=== PATIENT | male | born 1940 | race Caucasian/White ===

== ENCOUNTER 2024-05-25 20:04 | Emergency (ER) | payer OTHER, BC ==
[2024-05-25 20:37] LABS: BASOPHILS PERCENT AUTO 0.2 % (0.0-1.0); EOSINOPHILS PERCENT AUTO 1.5 % (1.0-3.0); HEMATOCRIT 37.4 % (40.0-54.0); HEMOGLOBIN 12.2 g/dL (14.0-18.0); LYMPHOCYTES PERCENT AUTO 20.1 % (20.5-50.1); MEAN CORPUSCULAR HEMOGLOBIN 29.4 pg (27.0-34.0); MEAN CORPUSCULAR HGB CONC 32.6 g/dL (33.0-35.0); MEAN CORPUSCULAR VOLUME 90.1 fL (80-100); MONOCYTES PERCENT AUTO 8.1 % (2-8); NEUTROPHILS PERCENT AUTO 70.1 % (42.2-75.2); PLATELET COUNT,PLT 229 10^3/uL (150-450); RED BLOOD CELL COUNT 4.15 10^6/uL (4.6-6.2); WHITE BLOOD CELL COUNT,WBC 8.7 10^3/uL (5.0-10.0)
[2024-05-25 20:53] LABS: BLOOD UREA NITROGEN,BUN 37 mg/dL (7-18); C-REACTIVE PROTEIN < 0.50 ng/dL (<=0.50); CALCIUM 8.9 mg/dL (8.5-10.1); CARBON DIOXIDE,CO2 30 mmol/L (21-32); CHLORIDE,CL 104 mmol/L (98-107); CREATININE 1.92 mg/dL (0.70-1.30); EST CRCL DRUG DOSING (CG) 28.55 mL/min; ESTIMATED GFR 34 mL/min (>=60); GLUCOSE RANDOM 126 mg/dL (70-99); MAGNESIUM 2.3 mg/dL (1.8-2.4); SODIUM,NA 141 mmol/L (136-145)
[2024-05-25] MEDS: Acetaminophen 500 MG Tab PO ONE (20:57)
[2024-05-25] MEDS: Ketorolac 30 MG/ML SDV IM ONE (20:57)
[2024-05-25] MEDS ORDERED: Sodium Chloride 0.9% 1,000 ML IV ONE (21:14)
[2024-05-25] MEDS ORDERED: Sodium Chloride 0.9% 10 ML Syringe FLUSH PRN (21:14)
[2024-05-25] MEDS: Sodium Chloride 0.9% 500 ML IV SCH (21:26)
== END 2024-05-25 22:36 | disposition home or self-care (01) ==
LOC: DL.ED 20:04
DX: E86.0 Dehydration (principal); W01.0XXA Fall on same level from slipping, tripping and stumbling without subsequent striking against object, initial encounter; Y92.129 Unspecified place in nursing home as the place of occurrence of the external cause
CPT/HCPCS: 36415; 80048; 83735; 85025; 86140; 96360; 96372; 99284; A9270; J1885; J7040

== ENCOUNTER 2024-06-01 14:32 | Emergency (ER) | payer BC, OTHER ==
[2024-06-01] MEDS: Ketorolac 30 MG/ML SDV IVPUSH ONE (15:19)
[2024-06-01] MEDS: Acetaminophen 500 MG Tab PO ONE (15:20)
[2024-06-01] MEDS: Acetaminophen 500 MG Tab ONE (16:05)
[2024-06-01] MEDS: Lidocaine 5% 700 MG Patch TOP ONE (16:24)
[2024-06-01] MEDS ORDERED: Sodium Chloride 0.9% 10 ML Syringe FLUSH PRN (16:35)
[2024-06-01 16:48] LABS: BASOPHILS PERCENT AUTO 0.7 % (0.0-1.0); EOSINOPHILS PERCENT AUTO 3.2 % (1.0-3.0); HEMATOCRIT 37.9 % (40.0-54.0); HEMOGLOBIN 12.3 g/dL (14.0-18.0); LYMPHOCYTES PERCENT AUTO 35.2 % (20.5-50.1); MEAN CORPUSCULAR HEMOGLOBIN 28.8 pg (27.0-34.0); MEAN CORPUSCULAR HGB CONC 32.5 g/dL (33.0-35.0); MEAN CORPUSCULAR VOLUME 88.8 fL (80-100); MONOCYTES PERCENT AUTO 12.1 % (2-8); NEUTROPHILS PERCENT AUTO 48.8 % (42.2-75.2); PLATELET COUNT,PLT 263 10^3/uL (150-450); RED BLOOD CELL COUNT 4.27 10^6/uL (4.6-6.2)
[2024-06-01] MEDS: Sodium Chloride 0.9% 1,000 ML IV ONE ×2 (16:55→18:26)
[2024-06-01 17:08] LABS: A/G RATIO 0.9; ALBUMIN 3.4 g/dL (3.4-5.0); ANION GAP 14.9 mEq/L (7-13); BILIRUBIN TOTAL 0.4 mg/dL (0.2-1.0); BUN/CREATININE RATIO 16.1 (No establ ref range); CREATININE 1.99 mg/dL (0.70-1.30); EST CRCL DRUG DOSING (CG) 28.39 mL/min; MAGNESIUM 2.2 mg/dL (1.8-2.4); POTASSIUM,K 3.9 mmol/L (3.5-5.1); PROTEIN TOTAL,TP 7.3 g/dL (6.4-8.2)
[2024-06-01] MEDS: methylPREDNISolone Sodium Succinate 125 MG/2 ML SDV ONE (17:31)
[2024-06-01] MEDS: methylPREDNISolone Sodium Succinate 500 MG/4 ML SDV IVPUSH ONE (17:31)
[2024-06-01] MEDS: Lactulose Soln 10 GM/15 ML 30 ML UD Cup PO ONE (18:25)
[2024-06-01] MEDS ORDERED: Sennosides/Docusate Sodium 50-8.6 MG Tab PO ONE (19:43)
[2024-06-01] MEDS ORDERED: Metoclopramide 10 MG/2 ML SDV IVPUSH ONE (19:44)
[2024-06-01] MEDS ORDERED: Magnesium Citrate Solution 296 ML Bottle PO ONE (19:44)
[2024-06-01] MEDS ORDERED: Bisacodyl 10 MG Supp RECTAL ONE (19:45)
== END 2024-06-01 21:45 | disposition home or self-care (01) ==
LOC: DL.ED 14:32
DX: S32.001A Stable burst fracture of unspecified lumbar vertebra, initial encounter for closed fracture (principal); K59.00 Constipation, unspecified; W19.XXXA Unspecified fall, initial encounter
CPT/HCPCS: 36415; 72131; 72192; 80053; 83735; 85025; 96360; 96361; 99283; 99284; A9270; J7030; J1885

== ENCOUNTER 2024-06-06 15:27 | Inpatient (IN) | payer OTHER, BC ==
[2024-06-06] MEDS ORDERED: Sodium Chloride 0.9% 10 ML Syringe FLUSH PRN (15:42)
[2024-06-06 15:58] LABS: BASOPHILS PERCENT AUTO 0.5 % (0.0-1.0); EOSINOPHILS PERCENT AUTO 2.7 % (1.0-3.0); HEMATOCRIT 38.5 % (40.0-54.0); HEMOGLOBIN 12.7 g/dL (14.0-18.0); LYMPHOCYTES PERCENT AUTO 33.2 % (20.5-50.1); MEAN CORPUSCULAR HEMOGLOBIN 29.4 pg (27.0-34.0); MEAN CORPUSCULAR VOLUME 89.1 fL (80-100); MONOCYTES PERCENT AUTO 11.1 % (2-8); NEUTROPHILS PERCENT AUTO 52.5 % (42.2-75.2); PLATELET COUNT,PLT 325 10^3/uL (150-450); RED BLOOD CELL COUNT 4.32 10^6/uL (4.6-6.2); WHITE BLOOD CELL COUNT,WBC 7.4 10^3/uL (5.0-10.0)
[2024-06-06 16:20] LABS: LACTIC ACID 1.3 mmol/L (0.4-2.0)
[2024-06-06 16:22] LABS: B-TYPE NATRIURETIC PEPTIDE,BNP 130 pg/ml (0-100)
[2024-06-06 16:24] LABS: INR 0.9 (0.9-1.2); PROTHROMBIN TIME 9.6 SEC (9.0-12.0)
[2024-06-06 16:32] LABS: A/G RATIO 0.9; ALANINE AMINOTRANSFERASE,ALT 36 U/L (16-63); ALBUMIN 3.6 g/dL (3.4-5.0); ALKALINE PHOSPHATASE 125 U/L (46-116); ANION GAP 14.2 mEq/L (7-13); ASPARTATE AMNIOTRANSFERASE,AST 42 U/L (15-37); BILIRUBIN TOTAL 0.4 mg/dL (0.2-1.0); BLOOD UREA NITROGEN,BUN 39 mg/dL (7-18); BUN/CREATININE RATIO 20.7 (No establ ref range); C-REACTIVE PROTEIN 0.95 ng/dL (<=0.50); CALCIUM 9.4 mg/dL (8.5-10.1); CARBON DIOXIDE,CO2 29 mmol/L (21-32); CHLORIDE,CL 102 mmol/L (98-107); CREATININE 1.88 mg/dL (0.70-1.30); ESTIMATED GFR 35 mL/min (>=60); GLUCOSE RANDOM 92 mg/dL (70-99); MAGNESIUM 2.2 mg/dL (1.8-2.4); POTASSIUM,K 4.2 mmol/L (3.5-5.1); PROTEIN TOTAL,TP 7.5 g/dL (6.4-8.2); SODIUM,NA 141 mmol/L (136-145)
[2024-06-06 17:36] LABS: APPEARANCE,URINE CLEAR (CLEAR); BILIRUBIN,URINE NEGATIVE (NEGATIVE); COLOR,URINE YELLOW (YELLOW); GLUCOSE,URINE NEGATIVE (NEGATIVE); KETONES,URINE NEGATIVE (NEGATIVE); LEUKOCYTE ESTERASE,URINE NEGATIVE (NEGATIVE); NITRITE,URINE NEGATIVE (NEGATIVE); OCCULT BLOOD,URINE NEGATIVE (NEGATIVE); PH,URINE 6.5 (5.0-9.0); PROTEIN,URINE NEGATIVE (NEGATIVE); UROBILINOGEN,URINE 0.2 mg/dL (0.2-1.0)
[2024-06-06 17:38] LABS: AMPHETAMINES,URINE NEGATIVE (NEGATIVE); BARBITURATES,URINE NEGATIVE (NEGATIVE); BENZODIAZEPINE,URINE NEGATIVE (NEGATIVE); MDMA (ECSTASY), URINE NEGATIVE (NEGATIVE); METHADONE,URINE NEGATIVE (NEGATIVE); METHAMPHETAMINES,URINE NEGATIVE (NEGATIVE); OPIATES,URINE NEGATIVE (NEGATIVE); OXYCODONE,URINE NEGATIVE (NEGATIVE); PHENCYCLIDINE,URINE NEGATIVE (NEGATIVE); TCA,URINE NEGATIVE (NEGATIVE)
[2024-06-06] MEDS ORDERED: Ondansetron 4 MG/2 ML SDV IVPUSH PRN (20:05)
[2024-06-06 20:50] LABS: PHOSPHORUS 3.4 mg/dL (2.6-4.7)
[2024-06-06] MEDS: oxyCODONE 5 MG Tab PO PRN (22:09)
[2024-06-06] MEDS: Sodium Chloride 0.9% 1,000 ML IV SCH (22:09)
[2024-06-06] MEDS: Heparin Sodium 5,000 Units/ML Vial SUBCUT SCH (22:09)
[2024-06-07 05:54] LABS: BASOPHILS PERCENT AUTO 0.7 % (0.0-1.0); EOSINOPHILS PERCENT AUTO 2.4 % (1.0-3.0); HEMATOCRIT 35.1 % (40.0-54.0); HEMOGLOBIN 11.7 g/dL (14.0-18.0); LYMPHOCYTES PERCENT AUTO 37.9 % (20.5-50.1); MEAN CORPUSCULAR HEMOGLOBIN 29.3 pg (27.0-34.0); MEAN CORPUSCULAR HGB CONC 33.3 g/dL (33.0-35.0); MEAN CORPUSCULAR VOLUME 87.8 fL (80-100); MONOCYTES PERCENT AUTO 9.6 % (2-8); NEUTROPHILS PERCENT AUTO 49.4 % (42.2-75.2); PLATELET COUNT,PLT 299 10^3/uL (150-450); WHITE BLOOD CELL COUNT,WBC 5.5 10^3/uL (5.0-10.0)
[2024-06-07 06:10] LABS: ANION GAP 12.7 mEq/L (7-13); CALCIUM 8.3 mg/dL (8.5-10.1); CREATININE 1.51 mg/dL (0.70-1.30); EST CRCL DRUG DOSING (CG) 35.57 mL/min; POTASSIUM,K 3.7 mmol/L (3.5-5.1)
[2024-06-07] MEDS ORDERED: Acetaminophen 325 MG Tab PO PRN (12:07)
[2024-06-07] MEDS: Acetaminophen 325 MG Tab PO PRN (14:20)
[2024-06-07] MEDS: Aspirin 81 MG Tab.EC PO SCH (14:21)
[2024-06-07] MEDS: predniSONE 5 MG Tab PO SCH (14:21)
[2024-06-07] MEDS: hydrALAZINE 20 MG/ML SDV IVPUSH PRN (16:28)
[2024-06-07] MEDS ORDERED: Metoprolol Tartrate 5 MG/5 ML SDV IVPUSH PRN (17:47)
[2024-06-07] MEDS: Carvedilol 3.125 MG Tab PO SCH (17:51)
[2024-06-07] MEDS: Metoprolol Tartrate 5 MG/5 ML SDV IVPUSH ONE (17:52)
[2024-06-07] MEDS: hydrALAZINE 25 MG Tab PO SCH (18:25)
[2024-06-07] MEDS: Tamsulosin 0.4 MG Cap.ER PO SCH (20:04)
[2024-06-07] MEDS: Allopurinol 300 MG Tab PO SCH (20:04)
[2024-06-07] MEDS ORDERED: LIDOCAINE 4% TOP SCH (21:00)
[2024-06-08] MEDS: ABIRATERONE ACETATE 250 MG PO SCH (05:59)
[2024-06-08] MEDS: Cholecalciferol (Vitamin D3) 25 MCG Tab PO SCH (08:49)
[2024-06-08] MEDS: Furosemide 80 MG Tab PO SCH (08:49)
[2024-06-08] MEDS ORDERED: Non-Formulary Medication 1 Each (Ciclopirox/Urea/Camph/Men/Euc [Ciclopirox 8% Treatment Ki TOP SCH (09:00)
[2024-06-08 12:00] LABS: CREATININE 1.69 mg/dL (0.70-1.30); EST CRCL DRUG DOSING (CG) 31.78 mL/min
[2024-06-08 12:01] LABS: ANION GAP 10.9 mEq/L (7-13); CALCIUM 8.5 mg/dL (8.5-10.1); CREATININE 1.63 mg/dL (0.70-1.30); EST CRCL DRUG DOSING (CG) 32.95 mL/min; POTASSIUM,K 3.9 mmol/L (3.5-5.1)
[2024-06-09 14:22] LABS: ANION GAP 9.2 mEq/L (7-13); CALCIUM 8.4 mg/dL (8.5-10.1); CREATININE 1.83 mg/dL (0.70-1.30); EST CRCL DRUG DOSING (CG) 29.35 mL/min; POTASSIUM,K 4.2 mmol/L (3.5-5.1)
[2024-06-09] MEDS: Sodium Chloride 0.9% 1,000 ML IV SCH (20:31)
[2024-06-10 09:32] LABS: ANION GAP 10.4 mEq/L (7-13); CALCIUM 8.2 mg/dL (8.5-10.1); CREATININE 1.57 mg/dL (0.70-1.30); EST CRCL DRUG DOSING (CG) 34.21 mL/min; POTASSIUM,K 3.4 mmol/L (3.5-5.1)
[2024-06-10] MEDS: Potassium Chloride 10 MEQ Tab.ER PO ONE (13:56)
[2024-06-11] MEDS: Potassium Chloride 10 MEQ Tab.ER PO ONE (18:00)
[2024-06-12 10:14] LABS: CALCIUM 9.5 mg/dL (8.5-10.1); CREATININE 1.87 mg/dL (0.70-1.30); EST CRCL DRUG DOSING (CG) 28.72 mL/min
== END 2024-06-12 13:30 | disposition home health service (06) | DRG 683 ==
LOC: DL.ED 15:27 → DL.MS 18:34 → DL.ED 18:43
PROVIDERS: ADMIT Internal Medicine; ATTEND Internal Medicine
DX: N17.9 Acute kidney failure, unspecified (principal); C79.89 Secondary malignant neoplasm of other specified sites; E86.0 Dehydration; R62.7 Adult failure to thrive; Z66 Do not resuscitate; H91.90 Unspecified hearing loss, unspecified ear; M19.90 Unspecified osteoarthritis, unspecified site; F15.90 Other stimulant use, unspecified, uncomplicated; I10 Essential (primary) hypertension; C61 Malignant neoplasm of prostate; Z51.5 Encounter for palliative care; Z79.899 Other long term (current) drug therapy; Z68.21 Body mass index [BMI] 21.0-21.9, adult
CPT/HCPCS: 36415; 70450; 80048; 80053; 80305-QW; 81003; 82565; 82947; 83605; 83735; 83880; 84100; 84145; 84484; 85025; 85610; 85730; 86140; 87040; 97110-GP; 97161-GP; 97165-GO; 97530-GO; 97535-GO; 99223; 99233; 99239; A9270-GY; J0360; J1644; J3490; J7030; J7512